=== PATIENT | female | born 1985 | race Caucasian/White ===

== ENCOUNTER 2016-09-15 13:46 | Emergency (ER) | payer OTHER ==
[~2016-09-15] VITALS: Ht 175.3 cm; Wt 100.9 kg
[~2016-09-15 13:46] MED LIST: CLEOCIN300 MG PO; EFFEXOR37.5 MG PO; FLEXERIL10 MG PO; GARLIC1 EACH PO; GARLIC1000 MG PO; GUMMY SWIRLS1 EACH PO; IMITREX25 MG PO; INDOCIN50 MG PO; L-LYSINE500 MG PO; LAMICTAL100 MG PO; LAMICTAL25 MG PO; LITHIUM CARBON300 MG PO; MOTRIN800 MG PO; NAPROSYN500 MG PO; PERCOCET 5/31 TABLET PO; PRENATAL1 EACH PO; REGLAN10 MG PO; VYVANSE20 MG PO; ZOFRAN4 MG PO
[2016-09-15 14:45] VITALS: BP 113/81
[2016-09-15] MEDS ORDERED: ULTRAM50 MG PO (17:40)
[2016-09-15] MEDS ORDERED: FLEXERIL10 MG PO (17:40)
== END 2016-09-15 17:46 | disposition home or self-care (01) ==
LOC: EME 13:46
DX: S20.212A Contusion of left front wall of thorax, initial encounter (principal); S83.92XA Sprain of unspecified site of left knee, initial encounter; W01.0XXA Fall on same level from slipping, tripping and stumbling without subsequent striking against object, initial encounter; Y92.59 Other trade areas as the place of occurrence of the external cause; Z87.891 Personal history of nicotine dependence
CPT/HCPCS: 71100; 73564; 99281; 99283

== ENCOUNTER 2018-01-11 22:17 | Emergency (ER) | payer OTHER ==
[~2018-01-11] VITALS: Ht 175.3 cm; Wt 110.4 kg
[~2018-01-11 22:17] MED LIST changes: +ULTRAM50 MG PO
[2018-01-12] MEDS ORDERED: MOTRIN800 MG PO (00:42)
[2018-01-12] MEDS ORDERED: ULTRACET1 TABLET PO (00:42)
[2018-01-12] MEDS ORDERED: VALIUM5 MG PO (00:43)
[2018-01-12 00:45] VITALS: BP 139/103
== END 2018-01-12 00:52 | disposition home or self-care (01) ==
LOC: EME 22:17
DX: S70.02XA Contusion of left hip, initial encounter (principal); S70.212A Abrasion, left hip, initial encounter; S39.012A Strain of muscle, fascia and tendon of lower back, initial encounter; S93.402A Sprain of unspecified ligament of left ankle, initial encounter; M77.32 Calcaneal spur, left foot; W18.30XA Fall on same level, unspecified, initial encounter; Z87.891 Personal history of nicotine dependence
CPT/HCPCS: 72100; 73502; 73610; 84702; 99281; 99283